=== PATIENT | female | born 1980 | race Caucasian/White ===

== ENCOUNTER 2017-11-06 02:11 | Observation (INO) | payer BC ==
[2017-11-06] VITALS (9 sets, daily range): BP systolic 92–101; BP diastolic 52–68; PULSE 72–87; TEMP 36.4–36.8; O2SAT 95–98; Ht 165.1 cm; Wt 57.5 kg
[~2017-11-06] VITALS: Ht 165.1 cm; Wt 57.5 kg
[~2017-11-06 02:11] MED LIST: ASCA500 PO; B-CO1CAP17 PO; BIOT1CAP8 PO; CALC500C70 PO; CHOL1000 PO; ESCI10TA17 PO; MULT-506 PO
[2017-11-06] MEDS ORDERED: HYDROmorphone INJ 0.5 MG/0.5 ML SYR IV STA ×2 (02:28→03:44)
[2017-11-06] MEDS ORDERED: ONDANSETRON INJ 2 MG/ML 2 ML VIAL IV STA (02:28)
--- NOTE | 2017-11-06 02:38 | EMERGENCY ROOM VISIT NOTE ---
History Report prepared by Leslee: Alverto Alvares Under the Supervision of: Dr. Caitie Garcia D.O. First contact with patient: 02:18 Chief Complaint: ABDOMINAL PAIN Stated Complaint: ABDOMINAL PAIN FOR 8 HRS History of Present Illness The patient is a 37 year old female who presents to the Emergency Room with complaints of worsening abdominal pain since yesterday afternoon. She states that she took a nap yesterday afternoon and woke up with bad pain in her stomach. She notes the pain has been worsening over the last eight hours. She reports eating fried chicken at 1400 yesterday. Her LNMP was October 12, 2017. She notes the pain is in her whole abdomen. She denies any history of acid reflux for the past 18 years. She reports having acid reflux while she was at that time. She denies this pain is similar to her previous flank pain history. She reports nausea, though denies any vomiting. She denies any diarrhea. She reports last normal BM was yesterday morning. She reports having an alcoholic drink with dinner the night before last. She notes a history of tubal ligation, tonsillectomy, and adenoidectomy. She reports a cough though associates it with allergy season. Source of History: patient Onset: since yesterday afternoon Position: abdomen Symptom Intensity: "bad" Timing: worsening Associated Symptoms: + cough, + nausea, No vomiting, No diarrhea Review of Systems See HPI for pertinent positives & negatives. A total of 10 systems reviewed and were otherwise negative. Past Medical & Surgical Medical Problems: (1) Flank pain (2) Olivera-Piotr syndrome Surgical Problems: (1) H/O tubal ligation (2) History of hysterectomy (3) History of tonsillectomy and adenoidectomy Family History Cancer Social History Smoking Status: Current Every Day Smoker Alcohol Use: occasionally Drug Use: none Marital Status: Housing Status: lives with family Occupation Status: employed Current/Historical Medications Scheduled Dexmethylphenidate HCl (Dexmethylphenidate HCl ER), 25 MG PO QAM Dexmethylphenidate Hcl (Focalin), 5 MG PO DAILY@ NOON Allergies Coded Allergies: Erythromycin (Verified Allergy, Unknown, "HERNÁNDEZ FROM INSIDE OUT", 05/14/17) Sulfa Drugs (Verified Allergy, Unknown, "HERNÁNDEZ FROM INSIDE OUT", 05/14/17) Acetaminophen (Verified Adverse Reaction, Unknown, N/V, 05/14/17) Hydrocodone (Verified Adverse Reaction, Unknown, N/V, 05/14/17) Uncoded Allergies: PORK PRODUCTS (Allergy, Unknown, VOMITING, 04/08/16) Physical Exam Vital Signs Date Time Temp Pulse Resp B/P (MAP) Pulse Ox O2 Delivery O2 Flow Rate FiO2 11/06/17 04:41 88 15 103/65 98 Room Air 11/06/17 03:31 86 16 102/67 99 Room Air 11/06/17 03:00 83 14 106/63 99 Room Air 11/06/17 03:00 85 11/06/17 02:16 36.6 103 18 101/66 100 Room Air Physical Exam HEENT: Head - normocephalic and atraumatic Pupils are equal, round, and reactive to light. Extraocular eye muscles are intact, and sclera are anicteric. Nose - moist nasal mucosa without discharge. Mouth - moist buccal mucosa. Oropharynx is nonerythematous and there is no tonsillar exudate or edema noted. Neck: Supple; no JVD, nuchal rigidity, cervical lymphadenopathy. Heart: Regular rate and rhythm. There is a normal S1 and S2 with no murmurs, clicks, or gallops appreciated. Lungs: Clear to auscultation bilaterally with no wheezes, rales, or rhonchi. Abdomen: Soft, acute abdominal pain with light palpation, guarding and rebound present, nondistended, with good bowel sounds. There are no palpable pulsatile masses or hepatosplenomegaly. There is no rigidity noted. Extremities: No evidence of cyanosis, clubbing, or edema. There are easily palpable peripheral pulses. Skin: warm and dry with good turgor and no rashes. Pale and cyanotic in color. Cyanosis of head, neck, and chest. Medical Decision & Procedures ER Provider Diagnostic Interpretation: Radiology results as stated below per my review and interpretation: KUB (upright) XR: No free air under the diaphragm. Radiology results as stated below per my review and the radiologist's interpretation: CT ABDOMEN & PELVIS With Contrast: Comparison: CT abdomen and pelvis 05/14/17. Dilated and fluid-filled appendix measuring up to 9 mm in diameter suspicious for acute appendicitis. No evidence of free air or abscess. No evidence of bowel obstruction. Uterus and urinary bladder are unremarkable. Liver, gallbladder, spleen, pancreas, adrenal glands, and kidneys are unremarkable. No acute osseous findings. Radiologist: Nancy Goodwin MD Study ready at 03:34 and initial results transmitted at 03:47 Laboratory Results 11/06/17 02:36 Red Blood Count 4.97, Mean Corpuscular Volume 87.3, Mean Corpuscular Hemoglobin 29.6, Mean Corpuscular Hemoglobin Concent 33.9, Mean Platelet Volume 10.6, Neutrophils (%) (Auto) 75.4, Lymphocytes (%) (Auto) 16.4, Monocytes (%) (Auto) 7.1, Eosinophils (%) (Auto) 0.6, Basophils (%) (Auto) 0.1, Neutrophils # (Auto) 15.56, Lymphocytes # (Auto) 3.37, Monocytes # (Auto) 1.46, Eosinophils # (Auto) 0.12, Basophils # (Auto) 0.02 11/06/17 02:36 Test 11/06/17 02:30 11/06/17 02:36 Urine Color YELLOW Urine Appearance CLOUDY (CLEAR) Urine pH 5.0 (4.5-7.5) Urine Specific [place] 1.023 (1.000-1.030) Urine Protein NEG (NEG) Urine Glucose (UA) NEG (NEG) Urine Ketones TRACE (NEG) Urine Occult Blood NEG (NEG) Urine Nitrite NEG (NEG) Urine Bilirubin NEG (NEG) Urine Urobilinogen NEG (NEG) Urine Leukocyte Esterase SMALL (NEG) Urine WBC (Auto) 10-30 /hpf (0-5) Urine RBC (Auto) 0-4 /hpf (0-4) Urine Hyaline Casts (Auto) 1-5 /lpf (0-5) Urine Epithelial Cells (Auto) >30 /lpf (0-5) Urine Bacteria (Auto) 1+ (NEG) Urine Test NEG (NEG) White Blood Count 20.61 K/uL (4.8-10.8) Red Blood Count 4.97 M/uL (4.2-5.4) Hemoglobin 14.7 g/dL (12.0-16.0) Hematocrit 43.4 % (37-47) Mean Corpuscular Volume 87.3 fL (80-100) Mean Corpuscular Hemoglobin 29.6 pg (25-34) Mean Corpuscular Hemoglobin Concent 33.9 g/dl (32-36) Platelet Count 240 K/uL (130-400) Mean Platelet Volume 10.6 fL (7.4-10.4) Neutrophils (%) (Auto) 75.4 % Lymphocytes (%) (Auto) 16.4 % Monocytes (%) (Auto) 7.1 % Eosinophils (%) (Auto) 0.6 % Basophils (%) (Auto) 0.1 % Neutrophils # (Auto) 15.56 K/uL (1.4-6.5) Lymphocytes # (Auto) 3.37 K/uL (1.2-3.4) Monocytes # (Auto) 1.46 K/uL (0.11-0.59) Eosinophils # (Auto) 0.12 K/uL (0-0.5) Basophils # (Auto) 0.02 K/uL (0-0.2) RDW Standard Deviation 48.5 fL (36.4-46.3) RDW Coefficient of Variation 15.2 % (11.5-14.5) Immature Granulocyte % (Auto) 0.4 % Immature Granulocyte # (Auto) 0.08 K/uL (0.00-0.02) Anion Gap 5.0 mmol/L (3-11) Est Creatinine Clear Calc Drug Dose 87.1 ml/min Estimated GFR () 111.0 Estimated GFR (Non- 95.8 BUN/Creatinine Ratio 15.4 (10-20) Calcium Level 8.6 mg/dl (8.5-10.1) Total Bilirubin 0.4 mg/dl (0.2-1) Direct Bilirubin < 0.1 mg/dl (0-0.2) Aspartate Amino Transf (AST/SGOT) 15 U/L (15-37) Alanine Aminotransferase (ALT/SGPT) 16 U/L (12-78) Alkaline Phosphatase 67 U/L (45-117) Total Protein 7.1 gm/dl (6.4-8.2) Albumin 3.5 gm/dl (3.4-5.0) Lipase 145 U/L (73-393) Chemistry Specimen Hemolysis Laboratory results per my review. Medications Administered Medications (Trade) Dose Ordered Sig/Arian Route Start Time Stop Time Status Last Admin Dose Admin Hydromorphone HCl (Dilaudid Inj) 0.5 mg NOW STAT IV 11/06/17 02:28 11/06/17 02:29 DC 11/06/17 02:36 0.5 MG Ondansetron HCl (Zofran Inj) 4 mg NOW STAT IV 11/06/17 02:28 11/06/17 02:29 DC 11/06/17 02:35 4 MG Hydromorphone HCl (Dilaudid Inj) 0.5 mg NOW STAT IV 11/06/17 03:44 11/06/17 03:45 DC 11/06/17 03:49 0.5 MG Miscellaneous Information (Nursing Verbal Med Order) 1 ea ONE ONCE N/A 11/06/17 03:50 11/06/17 04:06 DC 11/06/17 03:50 1 EA Sodium Chloride 1,000 ml @ 999 mls/hr Q1H1M ONCE IV 11/06/17 03:50 11/06/17 05:15 DC 11/06/17 03:50 999 MLS/HR Procedure 0228: Ordered Zofran 4 mg IV and Dilaudid 0.5 mg IV 0344: Ordered Dilaudid 0.5 mg IV 0350: Ordered Sodium Chloride 1,000 ml @ 999 mls/hr IV. ED Course 0220: Past medical records reviewed. The patient was evaluated in room B3B. A complete history and physical exam was performed. IV lock was established. 0228: Ordered Zofran 4 mg IV and Dilaudid 0.5 mg IV. The patient had an upright KUB as described above. 0258: I reassessed the patient at this time. She reports the nausea has improved , though the abdominal pain is still severe. She states she feels high from the medication. The patient went for CT scan of the abdomen/pelvis as described above. 0344: Ordered Dilaudid 0.5 mg IV 0348: I reassessed the patient at this time. I discussed the results and treatment plan with the patient. I answered all pertaining questions that she had. She expressed understanding and verbalized agreement. The patient will be further evaluated. 0350: Ordered Sodium Chloride 1,000 ml @ 999 mls/hr IV. 0359: I spoke with Jenaro Isaacs PA-C surgery. We discussed the patient's case. The patient will be further evaluated. 0445: I spoke with Jenaro Isaacs PA-C surgery. He evaluated the patient. He states the patient will be seen by Dr. Freire, general surgery at 0700. Medical Decision The patient is a 37 year old female who presents to the ED with abdominal pain. Differential diagnosis includes pancreatitis, gastritis, perforated bowel, and appendicitis. Lab results showed: WBC 21,000. Stable H&H. Normal Lipase. Normal LFTs. Normal renal function. Normal Glucose. Negative . Urine: trace ketones, 1+ bacteria, 10-30 WBC, >30 epithelial cells, small leukocyte esterase. This is a 37-year-old female patient presents to the emergency department with diffuse abdominal pain over the past couple of hours. The pain is become more severe. The patient has a significant leukocytosis on laboratory testing. On CT scan, the patient has evidence of obvious acute appendicitis. The patient's vital signs are stable. I discussed the case with the surgical PA and they will take the patient to the OR this morning. Medication Reconcilliation Current Medication List: was personally reviewed by me Blood Pressure Screening Patient's blood pressure: Normal blood pressure Consults Time Called: 344 Consulting Physician: Jenaro Isaacs PA-C surgery Returned Call: 035 I spoke with Jenaro Isaacs PA-C surgery. We discussed the patient's case. The patient will be further evaluated. 0445: I spoke with Jenaro Isaacs PA-C surgery. He evaluated the patient. He states the patient will be seen by Dr. Freire, general surgery at 0700. Impression Primary Impression: Appendicitis Scribe Attestation The scribe's documentation has been prepared under my direction and personally reviewed by me in its entirety. I confirm that the note above accurately reflects all work, treatment, procedures, and medical decision making performed by me. Departure Information Dispostion Being Evaluated By Surgeon Say Brown M.D. (PCP) Patient Instructions My [facility] Problem Qualifiers Primary Impression: Appendicitis Appendicitis type: acute appendicitis Acute appendicitis type: with generalized peritonitis Qualified Codes: K35.2 - Acute appendicitis with generalized peritonitis
[2017-11-06] MEDS ORDERED: DEXM5TAB PO (02:49)
[2017-11-06 02:51] LABS: BASO % 0.1 %; BASO ABS # 0.02 K/uL (0-0.2); EOS % 0.6 %; EOS ABS # 0.12 K/uL (0-0.5); HEMATOCRIT 43.4 % (37-47); HEMOGLOBIN 14.7 g/dL (12.0-16.0); IG# 0.08 K/uL (0.00-0.02); LYMPH % 16.4 %; LYMPH ABS # 3.37 K/uL (1.2-3.4); MEAN CELL VOLUME 87.3 fL (80-100); MEAN CORPUSCULAR HEMOGLOBIN 29.6 pg (25-34); MEAN CORPUSCULAR HGB CONC 33.9 g/dl (32-36); MEAN PLATELET VOLUME 10.6 fL (7.4-10.4); MONO % 7.1 %; MONO ABS # 1.46 K/uL (0.11-0.59); NEUT % 75.4 %; NEUT ABS # 15.56 K/uL (1.4-6.5); PLATELET COUNT 240 K/uL (130-400); RED CELL DISTRIBUTION WIDTH CV 15.2 % (11.5-14.5); RED CELL DISTRIBUTION WIDTH SD 48.5 fL (36.4-46.3); WHITE BLOOD COUNT 20.61 K/uL (4.8-10.8)
[2017-11-06] MEDS ORDERED: DEXM25CA PO (02:51)
[2017-11-06] MEDS ORDERED: OPTIRAY 320 IV PRN (03:00)
[2017-11-06 03:10] LABS: ALBUMIN 3.5 gm/dl (3.4-5.0); ALT/SGPT 16 U/L (12-78); AST/SGOT 15 U/L (15-37); BLOOD UREA NITROGEN 12 mg/dl (7-18); CALCIUM 8.6 mg/dl (8.5-10.1); CARBON DIOXIDE 22 mmol/L (21-32); CREATININE 0.78 mg/dl (0.60-1.20); GLUCOSE 95 mg/dl (70-99); LIPASE 145 U/L (73-393); POTASSIUM 3.9 mmol/L (3.5-5.1); SODIUM 135 mmol/L (136-145)
[2017-11-06 03:14] LABS: ALKALINE PHOSPHATASE 67 U/L (45-117); TOTAL PROTEIN 7.1 gm/dl (6.4-8.2)
[2017-11-06] MEDS ORDERED: NURSING VERBAL MED ORDER ONE (03:50)
[2017-11-06] MEDS ORDERED: SODIUM CHLORIDE 0.9% 1000ML 1,000 ML IV ONE (03:50)
[2017-11-06] MEDS ORDERED: SODIUM CHLORIDE 0.9% 1000ML 1,000 ML IV SCH (04:45)
[2017-11-06] MEDS ORDERED: HYDROmorphone INJ 0.5 MG/0.5 ML SYR IV PRN (04:45)
[2017-11-06] MEDS ORDERED: HYDROmorphone INJ 2 MG/ML SYR/VIAL IV PRN (04:45)
[2017-11-06] MEDS ORDERED: ONDANSETRON INJ 2 MG/ML 2 ML VIAL IV PRN ×3 (04:45→09:00)
[2017-11-06] MEDS ORDERED: IV FLUIDS COMPLETED PRN ×2 (05:00→14:15)
--- NOTE | 2017-11-06 05:06 | Surgery Consultation ---
Consultation Date of Consultation: Nov 06, 2017. Attending Physician: Reason for Consultation: Acute Appendicitis History of Present Illness Patient is a 37F w/ PMHx SJS who presented to the ED this yesterday evening due to generalized abdominal pain and nausea. Reports her pain started around 1700. She has felt nauseated since the onset but denies any vomiting. States she always feels a little cold but denies fever, chills or recent illness. Pain has mostly been in her epigastric and periumbilical area with some radiation to the right side. She did receive some pain medication in the ED but still reports her pain as a 5/10. She has been urinating and moving her bowels without issue. She last ate at 1430 yesterday. PSHx significant for tubal ligation and tonsillectomy. Reports her nephew had appendicitis when he was young, denies any other family history. Denies use of blood thinning or anticoagulant medications. WBC 20.61. CT abd/pelvis shows 9mm dilated, fluid-filled appendix suspicious for acute appendicitis. Past Medical/Surgical History Medical Problems: (1) Abdominal pain Status: Acute (2) Appendicitis Status: Acute (3) Right flank pain Status: Acute (4) UTI (urinary tract infection) Status: Acute Family History Cancer Social History Smoking Status: Current Every Day Smoker Drug Use: none Marital Status: Housing Status: lives with family Occupation Status: employed Allergies Coded Allergies: Erythromycin (Verified Allergy, Unknown, "HERNÁNDEZ FROM INSIDE OUT", 05/14/17) Sulfa Drugs (Verified Allergy, Unknown, "HERNÁNDEZ FROM INSIDE OUT", 05/14/17) Acetaminophen (Verified Adverse Reaction, Unknown, N/V, 05/14/17) Hydrocodone (Verified Adverse Reaction, Unknown, N/V, 05/14/17) Uncoded Allergies: PORK PRODUCTS (Allergy, Unknown, VOMITING, 04/08/16) Home Medications Scheduled Dexmethylphenidate HCl (Dexmethylphenidate HCl ER), 25 MG PO QAM Dexmethylphenidate Hcl (Focalin), 5 MG PO DAILY@ NOON Current Inpatient Medications Current Inpatient Medications Medications (Trade) Dose Ordered Sig/Arian Route Start Time Stop Time Status Last Admin Dose Admin Ioversol (Optiray 320) 100 ml UD PRN IV 11/06/17 03:00 11/10/17 02:59 Sodium Chloride 1,000 ml @ 999 mls/hr Q1H1M ONCE IV 11/06/17 03:50 11/06/17 04:50 11/06/17 03:50 999 MLS/HR Cefoxitin Sodium 2000 mg/Dextrose 60 ml @ 100 mls/hr Q6H IV 11/06/17 04:45 11/07/17 04:44 UNV Ondansetron HCl (Zofran Inj) 4 mg Q6H PRN IV 11/06/17 04:45 12/06/17 04:44 UNV Sodium Chloride 1,000 ml @ 80 mls/hr [id number] IV 11/06/17 04:45 12/06/17 04:44 UNV Acetaminophen 1000 mg/Empty Bag 100 ml @ 400 mls/hr Q8H IV 11/06/17 04:45 12/06/17 04:44 UNV Hydromorphone HCl (Dilaudid Inj) 0.5 mg Q3HWA PRN IV 11/06/17 04:45 11/20/17 04:44 UNV Hydromorphone HCl (Dilaudid Inj) 1 mg Q3HWA PRN IV 11/06/17 04:45 11/20/17 04:44 UNV Review of Systems Constitutional: No fever, No chills Respiratory: No shortness of breath Cardiovascular: No chest pain Abdomen: + pain (epigastric, periumbilical ), + nausea, No vomiting, No diarrhea, No constipation Genitourinary - Female: No dysuria Physical Exam Date Time Temp Pulse Resp B/P (MAP) Pulse Ox O2 Delivery O2 Flow Rate FiO2 11/06/17 04:41 88 15 103/65 98 Room Air 11/06/17 03:31 86 16 102/67 99 Room Air 11/06/17 03:00 83 14 106/63 99 Room Air 11/06/17 03:00 85 11/06/17 02:16 36.6 103 18 101/66 100 Room Air General Appearance: WD/WN, no apparent distress Head: normocephalic, atraumatic ENT: hearing grossly normal Neck: trachea midline Respiratory/Chest: lungs clear, normal breath sounds, no respiratory distress, no accessory muscle use Cardiovascular: regular rate, rhythm, no gallop, no murmur Abdomen/GI: soft, no organomegaly, no pulsatile mass, + tenderness (Epigastric and periumbilical with radiation to right side, no rebound tenderness. ) Neurologic/Psych: alert, normal mood/affect, oriented x 3 Skin: normal color, warm/dry Laboratory Results Last 24 Hours Test 11/06/17 02:30 11/06/17 02:36 Urine Color YELLOW Urine Appearance CLOUDY Urine pH 5.0 Urine Specific [place] 1.023 Urine Protein NEG Urine Glucose (UA) NEG Urine Ketones TRACE Urine Occult Blood NEG Urine Nitrite NEG Urine Bilirubin NEG Urine Urobilinogen NEG Urine Leukocyte Esterase SMALL Urine WBC (Auto) 10-30 /hpf Urine RBC (Auto) 0-4 /hpf Urine Hyaline Casts (Auto) 1-5 /lpf Urine Epithelial Cells (Auto) >30 /lpf Urine Bacteria (Auto) 1+ Urine Test NEG White Blood Count 20.61 K/uL Red Blood Count 4.97 M/uL Hemoglobin 14.7 g/dL Hematocrit 43.4 % Mean Corpuscular Volume 87.3 fL Mean Corpuscular Hemoglobin 29.6 pg Mean Corpuscular Hemoglobin Concent 33.9 g/dl Platelet Count 240 K/uL Mean Platelet Volume 10.6 fL Neutrophils (%) (Auto) 75.4 % Lymphocytes (%) (Auto) 16.4 % Monocytes (%) (Auto) 7.1 % Eosinophils (%) (Auto) 0.6 % Basophils (%) (Auto) 0.1 % Neutrophils # (Auto) 15.56 K/uL Lymphocytes # (Auto) 3.37 K/uL Monocytes # (Auto) 1.46 K/uL Eosinophils # (Auto) 0.12 K/uL Basophils # (Auto) 0.02 K/uL RDW Standard Deviation 48.5 fL RDW Coefficient of Variation 15.2 % Immature Granulocyte % (Auto) 0.4 % Immature Granulocyte # (Auto) 0.08 K/uL Sodium Level 135 mmol/L Potassium Level 3.9 mmol/L Chloride Level 108 mmol/L Carbon Dioxide Level 22 mmol/L Anion Gap 5.0 mmol/L Blood Urea Nitrogen 12 mg/dl Creatinine 0.78 mg/dl Est Creatinine Clear Calc Drug Dose 87.1 ml/min Estimated GFR () 111.0 Estimated GFR (Non- 95.8 BUN/Creatinine Ratio 15.4 Random Glucose 95 mg/dl Calcium Level 8.6 mg/dl Total Bilirubin 0.4 mg/dl Direct Bilirubin < 0.1 mg/dl Aspartate Amino Transf (AST/SGOT) 15 U/L Alanine Aminotransferase (ALT/SGPT) 16 U/L Alkaline Phosphatase 67 U/L Total Protein 7.1 gm/dl Albumin 3.5 gm/dl Lipase 145 U/L Chemistry Specimen Hemolysis Assessment & Plan Acute Appendicitis Symptoms, labs and imaging seem to correlate with the diagnosis of acute appendicitis. Plan for laparoscopic appendectomy, possible open with Dr. Freire later this AM. Admit med/surg (observation), NPO, IV fluids, IV mefoxin 2g Q6H, pain medication prn, anti-emetics prn, SCDs. Risks, benefits, alternatives to the procedure were discussed - all questions answered. OR notified. Findings discussed with Dr. Freire. Please contact with questions or concerns.
[2017-11-06] MEDS ORDERED: HYDROmorphone INJ 2 MG/ML SYR/VIAL IV ONE (06:00)
[2017-11-06] MEDS ORDERED: CEFOXITIN IV 2,000 MG in DEXTROSE 5% 50ML 50 ML IV SCH ×2 (06:00→12:00)
[2017-11-06] MEDS ORDERED: ACETAMINOPHEN IV 1,000 MG in EMPTY BAG 0 ML IV SCH (06:00)
[2017-11-06] MEDS ORDERED: MIDAZOLAM HCL 1 MG/ML 2ML VIAL ONE (07:03)
[2017-11-06] MEDS ORDERED: FENTANYL CITRATE INJ 50 MCG/1 ML 2 ML VIAL ONE (07:03)
[2017-11-06] MEDS ORDERED: BUPIVACAINE 0.5 % 5 MG/1 ML MPF 30ML VIAL ONE (07:27)
[2017-11-06] MEDS ORDERED: FENTANYL CITRATE INJ 50 MCG/1 ML 2 ML VIAL IV PRN (07:30)
[2017-11-06] MEDS ORDERED: EpHEDrine SULFATE INJ 50 MG/ML AMP IV PRN (07:30)
[2017-11-06] MEDS ORDERED: ATROPINE SULFATE 0.1 MG/ML 5ML SYR IV PRN (07:30)
--- NOTE | 2017-11-06 07:46 | History & Physical Bridge Note ---
H&P Re-Evaluation Bridge Note: I have examined the patient, reviewed the History & Physical and in the interval since the performance of the History & Physical I have noted the following changes of clinical significance: No changes noted
--- NOTE | 2017-11-06 07:47 | DIAGNOSTIC IMAGING REPORT ---
CT SCAN OF THE ABDOMEN AND PELVIS WITH IV CONTRAST CLINICAL HISTORY: Right lower quadrant abdominal pain. COMPARISON STUDY: Abdominal CT dated 05/14/2017. TECHNIQUE: Following the IV administration of 110 cc of Optiray 320, CT scan of the abdomen and pelvis is performed from the lung bases to the proximal femora. Images are reviewed in the axial, sagittal, and coronal planes. IV contrast was administered without complication. A dose lowering technique was utilized adhering to the principles of ALARA. CT DOSE: 271.57 mGy.cm FINDINGS: Lung bases: The heart is normal in size and without pericardial effusion. The lung bases are clear. Liver: The contrast-enhanced liver is normal in size, contour, and attenuation. There is no intrahepatic biliary ductal dilatation. The hepatic veins and portal veins are patent. Gallbladder: Unremarkable. Spleen: Normal in size and attenuation. Pancreas: Unremarkable. Adrenal glands: Unremarkable. Kidneys: The contrast enhanced kidneys are normal in size and without hydronephrosis. The kidneys enhance symmetrically. Abdominal vasculature: The abdominal aorta is normal in course and caliber. Bowel: The small bowel and colon are normal in course and caliber. The appendix is distended and fluid-filled, measuring up to 9 mm in diameter as seen on image #275. The appendiceal wall is thickened and hyperemic and there is periappendiceal inflammatory stranding. The appearance is consistent acute appendicitis. No abscess is identified. Peritoneum: There is no intraperitoneal free air or abdominal ascites. There is a fat-containing umbilical hernia. Lymphadenopathy: None. Pelvic viscera: The bladder, uterus, and adnexa are normal as visualized. There are bilateral ovarian follicles. Involuting follicle is noted on the left. Trace free fluid is seen in the cul-de-sac. Skeletal structures: No lytic or blastic lesions are seen. IMPRESSION: 1. Findings are consistent with acute appendicitis. There is no evidence of abscess or perforation. 2. Trace free fluid in cul-de-sac is likely within physiologic limits. Electronically signed by: Antonio Brown M.D. 11/06/2017 7:46 AM Dictated Date/Time: 11/06/2017 7:42 AM
[2017-11-06] MEDS ORDERED: ONDANSETRON INJ 2 MG/ML 2 ML VIAL ONE (08:04)
[2017-11-06] MEDS ORDERED: DEXAMETHASONE SOD INJ 4 MG/ML VIAL ONE (08:04)
[2017-11-06] MEDS ORDERED: SUCCINYLCHOLINE CHLORIDE 20 MG/ML 10 ML VIAL IV ONE (08:04)
[2017-11-06] MEDS ORDERED: LIDOCAINE HCL 2% 2 ML VIAL (20MG/ML) ONE (08:04)
[2017-11-06] MEDS ORDERED: NEOSTIGMINE METHYLSULFATE 5 MG/5 ML SYR ONE (08:04)
[2017-11-06] MEDS ORDERED: GLYCOPYRROLATE INJ 0.2 MG/ML VIAL ONE (08:04)
[2017-11-06] MEDS ORDERED: PROPOFOL IV EMULSION 10 MG/ML 20 ML VIAL ONE (08:04)
[2017-11-06] MEDS ORDERED: ROCURONIUM BROMIDE 10 MG/ML 5 ML VIAL IV ONE (08:04)
--- NOTE | 2017-11-06 08:44 | [facility] Post Operative Brief Note ---
Immediate Operative Summary Operative Date Nov 06, 2017. Pre-Operative Diagnosis acute appendicitis Post-Operative Diagnosis acute appendicitis Procedure(s) Performed Laparoscopic appendectomy Surgeon Dr. Freire [employer] Supervisor Surgeon(s) Yenny Aiken PA-C Estimated Blood Loss 3mm Findings Consistent with Post-Op Diagnosis Acute, nonperforated appendicitis Specimens A. Appendix Drains None Anesthesia Type General Complication(s) none Disposition Accompanied Pt To Recover: no Disposition: Recovery Room / PACU
--- NOTE | 2017-11-06 08:46 | [facility] Operative Report ---
Operative Report Operative Date Nov 06, 2017. Pre-Operative Diagnosis acute appendicitis Post-Operative Diagnosis Acute appendicitis Procedure(s) Performed Laparoscopic appendectomy Surgeon Dr. Freire Rehabilitation Services Manager Surgeon(s) Yenny Aiken PA-C Estimated Blood Loss 3mm Findings Acute, nonperforated appendicitis Specimens A. Appendix Drains None Anesthesia GETA Complication(s) None Disposition Recovery Room / PACU Indications 37-year-old female admitted from the emergency department for findings of acute appendicitis, plan for laparoscopic appendectomy. The risks of the procedure were discussed, all questions were answered, and the patient agreed to proceed with surgery as planned. Description of Procedure The patient was properly identified, consented, and taken to the operating room where she was placed in the supine position. General endotracheal anesthesia was induced. SCDs and a safety belt were placed. Preoperative antibiotics were administered. A Chakraborty catheter was not placed. The patient's abdomen was prepped and draped in the standard sterile fashion. Surgical timeout was performed and all parties were in agreement that this was the correct patient and procedure to be performed and we continued as planned. A curvilinear infraumbilical incision was made with electrocautery and deepened down to the fascia with blunt dissection. The base of the umbilicus was grasped with a Ragini and elevated towards the ceiling. An incision was made in the midline fascia with a knife and entry into the peritoneum was confirmed. Stay suture of 0 Vicryl was placed and a Mckeon trocar was inserted. The abdomen was insufflated with carbon dioxide which the patient tolerated without incident. The laparoscope was inserted and no damage from initial trocar placement was noted, no gross abnormalities were noted within the 4 quadrants the abdomen. 5 mm ports were then placed in the left lower quadrant with care not to damage the epigastric vessels, and in the suprapubic midline with care not to damage the bladder. The patient was placed in Trendelenburg position and rotated towards the left. The small bowel was swept away from the right lower quadrant. The cecum was grasped withan atraumatic grasper exposing the appendix. The appendix was mildly inflamed in the midportion and there was no evidence of perforation. There was minimal fluid in the pelvis. A window was created between the base of the appendix and the mesoappendix. A bond loaded endoscopic stapler was then used to divide the appendix at its base. A bond load was then used to divide the mesoappendix. Hemostasis was good. The appendix was placed in an Endo Catch bag and removed through the umbilical port site. The right lower quadrant and pelvis was irrigated and hemostasis was found to be good. 5 mm trochars were removed under direct visualization and the abdomen was allowed to collapse. The umbilical port site fascia was closed with 0 Vicryl suture. The wound was irrigated, and the skin of all ports was closed with 4-0 Monocryl subcuticular sutures. Dermabond was placed over the wounds. The patient was extubated in the operating room and taken to the PACU where she recovered without apparent incident. All sponge, instrument and needle counts were correct at the conclusion of the procedure. The patient tolerated the procedure well. The physician's payroll assistant was present and scrubbed for the entirety of the case. She was essential in positioning the patient, prepping and draping, retraction and exposure, driving the laparoscope, removal of the appendix, closure of the incisions, and placement of the dressings. I attest to the content of the Intraoperative Record and any orders documented therein. Any exceptions are noted below.
[2017-11-06] MEDS ORDERED: KETOROLAC TROMETHAMINE 30 MG/ML VIAL ONE (08:48)
[2017-11-06] MEDS ORDERED: MoRPHine SULFATE 2 MG/ML CARP IV PRN ×2 (09:00)
[2017-11-06] MEDS ORDERED: OXYCODONE/ACETAMINOPHEN 5-325 TAB PO PRN ×2 (09:00)
[2017-11-06] MEDS ORDERED: MoRPHine SULFATE 4 MG/ML 1 ML CARP\\VIAL IV PRN (09:00)
--- NOTE | 2017-11-06 09:00 | DIAGNOSTIC IMAGING REPORT ---
KUB CLINICAL HISTORY: Generalized abdominal pain. Assess for intraperitoneal free air. FINDINGS: An AP upright view of the upper abdomen and lower chest is correlated with abdominal CT dated 05/14/2017. There is no evidence of bowel obstruction. No intraperitoneal free air is seen. There are no abnormal abdominal calcifications. The lung bases are clear as imaged. The visualized bony structures appear intact. IMPRESSION: There is no radiographic evidence of bowel obstruction or intraperitoneal free air. Electronically signed by: Antonio Brown M.D. 11/06/2017 8:59 AM Dictated Date/Time: 11/06/2017 8:58 AM
--- NOTE | 2017-11-06 09:02 | Discharge Instructions ---
Discharge Instructions Date of Service Nov 06, 2017. Admission Reason for Admission: Appendicitis Discharge Discharge Diagnosis / Problem: Appendicitis Discharge Goals Goal(s): Decrease discomfort, Improve function Activity Recommendations Activity Limitations: as noted below Lifting Limitations: no more than 10 pounds Exercise/Sports Limitations: until after follow-up appointment May Resume Sexual Activity: after follow-up appointment Shower/Bathe: tomorrow Driving or Machine Use: resume 1 day after discharge . Instructions / Follow-Up Instructions / Follow-Up You have surgical glue, Dermabond, over your incisions. You may shower tomorrow , but please do not soak or scrub your incisions, you may let soapy water run over them. Please follow-up with Dr. Freire in the General Surgery Clinic located at [address] [place] [address] [place] in 1-2 weeks after discharge. Please call our office at [phone] to make this appointment. Please call the General Surgery Clinic at [phone] with any questions or concerns. Current Hospital Diet Patient's current hospital diet: Discharge Diet Recommended Diet: Regular Diet Procedures Procedures Performed: Laparoscopic Appendectomy Pending Studies Studies pending at discharge: yes List of pending studies: Pathology report. Medical Emergencies . Who to Call and When: Medical Emergencies: If at any time you feel your situation is an emergency, please call 911 immediately. . Non-Emergent Contact Non-Emergency issues call your: Primary Care Provider, Surgeon Call Non-Emergent contact if: temperature is above 101.5, your pain is not controlled, wound has increased drainage, wound has increased redness . "Provider Documentation" section prepared by Yenny Albrecht. . [place] Drug Monitoring Program Search Results: patient reviewed within database, no issues identified
[2017-11-06] MEDS ORDERED: OXYC-57 PO (09:03)
--- NOTE | 2017-11-06 09:08 | Anesthesiology Progress Note ---
Anesthesia Post Op Note Date & Time Nov 06, 2017 at 09:08 Vital Signs Pain Intensity: 6.0 Vital Signs Past 12 Hours Date Time Temp Pulse Resp B/P (MAP) Pulse Ox O2 Delivery O2 Flow Rate FiO2 11/06/17 07:20 36.6 77 16 93/60 (71) 98 Room Air 11/06/17 05:37 36.8 87 20 95/59 98 Room Air 11/06/17 04:41 88 15 103/65 98 Room Air 11/06/17 03:31 86 16 102/67 99 Room Air 11/06/17 03:00 83 14 106/63 99 Room Air 11/06/17 03:00 85 11/06/17 02:16 36.6 103 18 101/66 100 Room Air Notes Mental Status: alert / awake / arousable, participated in evaluation Pt Amnestic to Procedure: Yes Nausea / Vomiting: adequately controlled Pain: adequately controlled Airway Patency, RR, SpO2: stable & adequate BP & HR: stable & adequate Hydration State: stable & adequate Anesthetic Complications: no major complications apparent
[2017-11-06] MEDS ORDERED: LACTATED RINGER'S 1000ML 1,000 ML IV SCH (10:00)
[2017-11-06] MEDS ORDERED: COUGH DROP (SUGAR FREE) LOZ 24 LOZ/1 BOX LOZ ONE (10:54)
[2017-11-06] MEDS ORDERED: NURSING DECISION MEDICATION ORDER SCH (11:15)
[2017-11-06] MEDS ORDERED: COUGH DROP (SUGAR FREE) LOZ 24 LOZ/1 BOX LOZ PRN (11:15)
--- NOTE | 2017-11-08 08:26 | Discharge Summary ---
Discharge Summary Date of Service November 08, 2017. Admission Date/Reason Nov 06, 2017 at 04:45 Appendicitis. Discharge Date/Disposition Nov 06, 2017 Home Diagnosis Principal Diagnosis: Acute Appendicitis Procedure(s) Performed Laparoscopic Appendectomy Medication Reconciliation New Medications: Oxycodone/Acetaminophen 5MG/325MG (Percocet 5MG/325MG) Tab 1-2 TABLETS PO Q4H PRN for Pain for 3 Days, #30 TAB Continued Medications: Dexmethylphenidate Hcl (Focalin) 5 Mg Tab 5 MG PO DAILY@ NOON Dexmethylphenidate HCl (Dexmethylphenidate HCl ER) 25 Mg Cap 25 MG PO QAM Admission Physical Exam As per Admitting History & Physical. Hospital Course Ms. Bryant is a 37-year-old female who presented to [facility] ED for evaluation of 1 day history of generalized abdominal pain and nausea. Patient reported subjective fevers and chills. PSHx significant for tubal ligation and tonsillectomy. WBC 20.61. CT abd/pelvis shows 9mm dilated, fluid-filled appendix suspicious for acute appendicitis. Recommendation- Laparoscopic Appendectomy. Pre-Operative Diagnosis- Acute Appendicitis Post-Operative Diagnosis- Acute Appendicitis Procedure- Laparoscopic Appendectomy Post-operatively patient returned to Med/Surg floor for pain control. Patient remained afebrile. She tolerated a regular diet and was deemed eligible for discharge. Return precautions reviewed with patient. Both verbal and written discharge instructions provided. Patient to follow-up in the General Surgery Clinic with Dr. Freire in 1-2 weeks after discharge. Discharge Instructions Please refer to the electronic Patient Visit Report (Discharge Instructions) for additional information.
== END 2017-11-06 14:26 | disposition home or self-care (01) ==
LOC: C.EDB 02:13 → C.MSN 04:45 → ENRESERV 05:03
PROVIDERS: ADMIT Surgery; ATTEND Surgery
DX: K35.80 Unspecified acute appendicitis (principal); F90.9 Attention-deficit hyperactivity disorder, unspecified type; F17.200 Nicotine dependence, unspecified, uncomplicated; Z88.2 Allergy status to sulfonamides; Z88.5 Allergy status to narcotic agent; Z87.440 Personal history of urinary (tract) infections; Z90.710 Acquired absence of both cervix and uterus

== ENCOUNTER → 2018-02-17 | Day surgery (SDC) | payer BC ==
[2018-02-15 09:06] VITALS: BMI 19.0
[~2018-02-17] VITALS: Ht 167.6 cm; Wt 52.7 kg
[~2018-02-17] MED LIST changes: -ASCA500 PO; -B-CO1CAP17 PO; -BIOT1CAP8 PO; -CALC500C70 PO; -CHOL1000 PO; +DEXM25CA PO; +DEXM5TAB PO; +DICY10CA12 PO; -ESCI10TA17 PO; +IBUP-103 PO; +LIDOCAINE HCL 2% 2 ML VIAL (20MG/ML) ONE; +MIDAZOLAM HCL 1 MG/ML 2ML VIAL ONE; -MULT-506 PO; +ONDANSETRON INJ 2 MG/ML 2 ML VIAL ONE; +PHENYLEPHRINE 100MCG/ML 5ML SYR ONE; +PROPOFOL IV EMULSION 10 MG/ML 20 ML VIAL ONE; +SODIUM CHLORIDE 0.9% 500ML 500 ML IV ONE
[2018-02-17 10:43] VITALS: Ht 167.6 cm; Wt 52.7 kg
--- NOTE | 2018-02-17 11:09 | Endo History and Physical ---
History & Physical Date of Service: Feb 17, 2018. Chief Complaint: ABDOMINAL PAIN Referring Physician: Dr. Kincaid History of Present Illness 37 yo CF who presents for EGD and Colonoscopy secondary to abdominal pain. Past Surgical History Hx Cardiac Surgery: No Hx Internal Defibrillator: No Hx Pacemaker: No Hx Abdominal Surgery: Yes (TUBAL LIGATION,LAP APPENDECTOMY) Hx of Implantable Prosthesis: No Hx Post-Op Nausea and Vomiting: No Hx Cancer Surgery: No Hx Thoracic Surgery: No Hx Orthopedic: No Hx Urinary Tract Surgery: No Family History Colon CA, Polyp Social History Smoking Status: Current Every Day Smoker Hx Substance Use: No Hx Alcohol Use: Yes (OCCASIONAL) Allergies Coded Allergies: Erythromycin (Verified Allergy, Unknown, "HERNÁNDEZ FROM INSIDE OUT", 02/17/18) Pork (Verified Allergy, Unknown, NAUSEA/VOMITING DIARRHEA, 02/17/18) Sulfa Drugs (Verified Allergy, Unknown, "HERNÁNDEZ FROM INSIDE OUT", 02/17/18) Hydrocodone (Verified Adverse Reaction, Unknown, N/V, 02/17/18) Current Medications Reported Home Medications Medications Dose Route/Sig Max Daily Dose Days Date Category Advil (Ibuprofen) 200 Mg Tab 400-600 Mg PO PRN 02/15/18 Reported Dicyclomine Hcl 10 Mg Cap 1 Cap PO Q6H PRN 25 02/15/18 Reported Dexmethylphenidate HCl ER (Dexmethylphenidate HCl) 25 Mg Cap 25 Mg PO QAM 11/06/17 Reported Focalin (Dexmethylphenidate Hcl) 5 Mg Tab 5 Mg PO DAILY@ NOON 11/06/17 Reported Vital Signs Weight (Kilograms): 52.73 Height (Feet): 5 Height (Inches): 6 Date Time Temp Pulse Resp B/P (MAP) Pulse Ox O2 Delivery O2 Flow Rate FiO2 02/17/18 11:04 37.0 74 18 98/67 (77) 98 Room Air Physical Exam General Appearance: WD/WN, no apparent distress Respiratory/Chest: Auscultation: breath sounds normal Cardiovascular: Heart Auscultation: RRR Abdomen: Bowel Sounds: normal Inspection & Palpation: soft, non-distended, no tenderness, guarding & rebound Assessment and Plan Assessment: 37 yo CF who presents for EGD and Colonoscopy secondary to abdominal pain. Plan: Proceed with EGD and colonoscopy.
--- NOTE | 2018-02-17 13:11 | Discharge Instructions ---
Endoscopy Patient Instructions Date / Procedure(s) Performed Feb 17, 2018. Colonoscopy, EGD Allergy Information Coded Allergies: Erythromycin (Verified Allergy, Unknown, "HERNÁNDEZ FROM INSIDE OUT", 02/17/18) Pork (Verified Allergy, Unknown, NAUSEA/VOMITING DIARRHEA, 02/17/18) Sulfa Drugs (Verified Allergy, Unknown, "HERNÁNDEZ FROM INSIDE OUT", 02/17/18) Hydrocodone (Verified Adverse Reaction, Unknown, N/V, 02/17/18) Discharge Date / Findings Feb 17, 2018. EGD: Gastritis s/p biopsies Colonoscopy: Random colon biopsies, Internal hemorrhoids Medication Instructions OK to resume all medications today as prescribed Reported Home Medications Medications Dose Route/Sig Max Daily Dose Days Date Category Advil (Ibuprofen) 200 Mg Tab 400-600 Mg PO PRN 02/15/18 Reported Dicyclomine Hcl 10 Mg Cap 1 Cap PO Q6H PRN 25 02/15/18 Reported Dexmethylphenidate HCl ER (Dexmethylphenidate HCl) 25 Mg Cap 25 Mg PO QAM 11/06/17 Reported Focalin (Dexmethylphenidate Hcl) 5 Mg Tab 5 Mg PO DAILY@ NOON 11/06/17 Reported Provider Instructions Activity Restrictions - No exercising or heavy lifting for 24 hours. - Do not drink alcohol the day of the procedure. - Do not drive a car or operate machinery until the day after the procedure. - Do not make any important decisions or sign important papers in 24 hours after the procedure. Following Day: - Return to full activity which may include returning to work/school. Diet Start your diet with liquids and light foods (jello, soup, juice, toast). Then eat your usual diet if not nauseated. Treatment For Common After Affects For mild abdominal pain, bloating, or excessive gas: - Rest - Eat lightly - Lie on right side Follow-Up Information Follow-up with as scheduled Anesthesia Information What You Should Know You have had a procedure that required some medicine to reduce anxiety and discomfort. This treatment is called moderate sedation. After receiving the treatment, you may be sleepy, but you will be able to breathe on your own. The effects of the treatment may last for several hours. Follow these instructions along with Activity/Diet recommendations noted above: * Do NOT do anything where dizziness or clumsiness would be dangerous. * Rest quietly at home today, then you can be up and about tomorrow. * Have a responsible person stay with you the rest of today. * You may have had an I.V. today. If so, you may take the dressing off later today. Recommendations Call your doctor if: * Trouble breathing * Continuous vomiting for more than 24 hours * Temperature above 101 degrees * Severe abdominal pain or bloating * Pain not relieved by pain medicine ordered * There is increased drainage or redness from any incision * A large amount of rectal bleeding greater than 2-3 tablespoons. (If you had a polyp/s removed or have hemorrhoids, a small amount of blood - from the rectum is to be expected.) * You have any unanswered questions or concerns. IN THE EVENT OF A SERIOUS EMERGENCY, GO TO THE NEAREST EMERGENCY ROOM Your discharge instructions were prepared by provider Quoc Cramer. Patient Instructions Signature Page Barbara Bryant Patient (or Guardian) Signature/Date: I have read and understand the instructions given to me by my caregivers. Caregiver/RN/Doctor Signature/Date: The above-named patient and/or guardian has received patient instructions on this date. + Original Patient Signature Page (only) stays with chart. Please make copy for patient.
--- NOTE | 2018-02-17 13:16 | GI REPORT ---
Patient Name: Barbara Bryant Procedure Date: 02/17/2018 12:06 PM Date of : 1980 Admit Type: Outpatient Age: 37 Gender: Female Attending MD: Quoc Cramer DO Procedure: Colonoscopy Providers: Quoc Cramer DO Referring MD: Say Kincaid Indications: Generalized abdominal pain Medicines: Monitored Anesthesia Care Complications: No immediate complications. Estimated Blood Loss: Estimated blood loss: none. Procedure: Pre-Anesthesia Assessment: - Prior to the procedure, a History and Physical was performed, and patient medications and allergies were reviewed. The patient's tolerance of previous anesthesia was also reviewed. The risks and benefits of the procedure and the sedation options and risks were discussed with the patient. All questions were answered, and informed consent was obtained. Prior Anticoagulants: The patient has taken no previous anticoagulant or antiplatelet agents. ASA Grade Assessment: II - A patient with mild systemic disease. After reviewing the risks and benefits, the patient was deemed in satisfactory condition to undergo the procedure. After I obtained informed consent, the scope was passed under direct vision. Throughout the procedure, the patient's blood pressure, pulse, and oxygen saturations were monitored continuously. The scope was introduced through the anus and advanced to the terminal ileum. The colonoscopy was performed without difficulty. The patient tolerated the procedure well. The quality of the bowel preparation was good. The terminal ileum, ileocecal valve, appendiceal orifice, and rectum were photographed. Findings: The perianal and digital rectal examinations were normal. Non-bleeding internal hemorrhoids were found during retroflexion. The hemorrhoids were small. Several random biopsies were obtained with cold forceps for histology in the entire colon. Impression: - Non-bleeding internal hemorrhoids. - Several random biopsies were obtained in the entire colon. Recommendation: - Resume previous diet. - Continue present medications. - Repeat colonoscopy for surveillance based on pathology results. - Return to primary care physician as previously scheduled. Quoc Cramer DO 02/17/2018 1:16:09 PM This report has been signed electronically. Note Initiated On: 02/17/2018 12:06 PM Number of Addenda: 0 I attest to the content of the Intraoperative Record and orders documented therein, exceptions below {[id number]}
[2018-02-17 13:17] VITALS: BP 97/62; PULSE 79; O2SAT 100
--- NOTE | 2018-02-17 13:18 | GI REPORT ---
Patient Name: Barbara Bryant Procedure Date: 02/17/2018 12:07 PM Date of : 1980 Admit Type: Outpatient Age: 37 Gender: Female Attending MD: Quoc Cramer DO Procedure: Upper GI endoscopy Providers: Quoc Cramer DO Referring MD: Say Kincaid Indications: Generalized abdominal pain Medicines: Monitored Anesthesia Care Complications: No immediate complications. Estimated Blood Loss: Estimated blood loss: none. Procedure: Pre-Anesthesia Assessment: - Prior to the procedure, a History and Physical was performed, and patient medications and allergies were reviewed. The patient's tolerance of previous anesthesia was also reviewed. The risks and benefits of the procedure and the sedation options and risks were discussed with the patient. All questions were answered, and informed consent was obtained. Prior Anticoagulants: The patient has taken no previous anticoagulant or antiplatelet agents. ASA Grade Assessment: II - A patient with mild systemic disease. After reviewing the risks and benefits, the patient was deemed in satisfactory condition to undergo the procedure. After obtaining informed consent, the endoscope was passed under direct vision. Throughout the procedure, the patient's blood pressure, pulse, and oxygen saturations were monitored continuously. The scope was introduced through the mouth, and advanced to the second part of duodenum. The upper GI endoscopy was accomplished without difficulty. The patient tolerated the procedure well. Findings: The esophagus was normal. Localized mild inflammation characterized by erythema was found in the gastric antrum. Biopsies were taken with a cold forceps for histology. The examined duodenum was normal. Impression: - Normal esophagus. - Gastritis. Biopsied. - Normal examined duodenum. Recommendation: - Resume previous diet. - Continue present medications. - Await pathology results. - Return to primary care physician as previously scheduled. Quoc Cramer DO 02/17/2018 1:18:06 PM This report has been signed electronically. Note Initiated On: 02/17/2018 12:07 PM Number of Addenda: 0 I attest to the content of the Intraoperative Record and orders documented therein, exceptions below {[id number]}
--- NOTE | 2018-02-17 13:34 | Anesthesiology Progress Note ---
Anesthesia Post Op Note Date & Time Feb 17, 2018 at 13:34 Vital Signs Pain Intensity: 0 Vital Signs Past 12 Hours Date Time Temp Pulse Resp B/P (MAP) Pulse Ox O2 Delivery O2 Flow Rate FiO2 02/17/18 13:17 79 18 97/62 (74) 100 Room Air 02/17/18 13:02 72 18 107/75 (86) 100 Room Air 02/17/18 12:46 80 18 98/66 (77) 100 Room Air 02/17/18 11:04 37.0 74 18 98/67 (77) 98 Room Air Notes Mental Status: alert / awake / arousable, participated in evaluation Pt Amnestic to Procedure: Yes Nausea / Vomiting: adequately controlled Pain: adequately controlled Airway Patency, RR, SpO2: stable & adequate BP & HR: stable & adequate Hydration State: stable & adequate Anesthetic Complications: no major complications apparent
== END | disposition home or self-care (01) ==
LOC: C.GI 10:33
PROVIDERS: ATTEND Internal Medicine
DX: R10.84 Generalized abdominal pain (principal); K64.8 Other hemorrhoids; K29.70 Gastritis, unspecified, without bleeding; F90.9 Attention-deficit hyperactivity disorder, unspecified type; Z80.0 Family history of malignant neoplasm of digestive organs; F17.200 Nicotine dependence, unspecified, uncomplicated; Z88.1 Allergy status to other antibiotic agents; Z88.2 Allergy status to sulfonamides; Z91.018 Allergy to other foods